=== PATIENT | female | born 1960 | race Caucasian/White ===

== ENCOUNTER 2016-11-28 07:36 | Day surgery (SDC) | payer BC ==
[~2016-11-28 07:36] MED LIST: Buffered Lidocaine 0.9% SYRIN* 5 ML/SYR SYRINGE INTRADERM ONE; Buffered Lidocaine 0.9% SYRIN* 5 ML/SYR SYRINGE ONE; Famotidine IV* 10 MG/ML 2 ML (20 mg) IV ONE; Famotidine IV* 10 MG/ML 2 ML (20 mg) ONE; Morphine INJ* 2 MG/ML 1 ML SYRINGE IV PRN; PROCHLORPERAZINE INJ 5 MG/ML 2 ML VIAL IV PRN; Scopolamine 1.5 mg* PATCH TRANSDERM PRN; ceFAZolin 2 GM PREMIX (*) 100 ML IVPB ONE; fentaNYL* 50 MCG/ML 2 ML VIAL (100 MCG VIAL) IV PRN; oxyCODONE/Acetamin 5/325 MG* TAB PO PRN
[2016-11-28] MEDS ORDERED: KETAMINE HCL* 50 MG/ML 10 ML VIAL ONE (08:13)
[2016-11-28] MEDS ORDERED: Midazolam* 1 MG/ML 5 ML VIAL (5 MG) ONE (08:13)
[2016-11-28] MEDS ORDERED: fentaNYL* 50 MCG/ML 2 ML VIAL (100 MCG VIAL) ONE (08:13)
[2016-11-28] MEDS ORDERED: Lidocaine 1% INJ* 10 MG/ML 30 ML SDV ONE (08:44)
[2016-11-28] MEDS ORDERED: Bupivacaine 0.5% W/EPI SDV* 10 ML VIAL INJ ONE (08:44)
[2016-11-28] MEDS ORDERED: Ketorolac INJ* 30 MG/ML 1 ML VIAL ONE (09:51)
[2016-11-28] MEDS ORDERED: EPHEDrine (Pressors)* 50 MG/ML VIAL ONE (09:51)
[2016-11-28] MEDS ORDERED: Propofol* 10 MG/ML 20 ML BTL IV PUSH ONE (09:51)
[2016-11-28] MEDS ORDERED: Lidocaine 2% PF * 5 ML VIAL ONE (09:51)
[2016-11-28] MEDS ORDERED: Ondansetron INJ* 2 MG/ML VIAL ONE (09:51)
[2016-11-28] MEDS ORDERED: Dexamethasone IV* 4 MG/ML 1 ML (4 MG) ONE (09:51)
[2016-11-28 11:43] VITALS: BP 124/70
--- NOTE | 2016-11-28 23:29 | OP ---
CC: Dr. De La Rosa * DATE OF OPERATION: 11/28/16 - [facility] DATE OF : 64 SURGEON: Rodney Mayo MD BLACK BELT: None. ANESTHESIOLOGIST: Dr. Finney. ANESTHESIA: LMAC anesthesia. PRE-OP DIAGNOSIS: Bloody nipple discharge of left breast. POST-OP DIAGNOSIS: Bloody nipple discharge of left breast. OPERATIVE PROCEDURE: Left terminal duct excision. DESCRIPTION OF PROCEDURE: The patient was supine on the operative table. After adequate intravenous sedation, compression stockings, Jeromy Hugger warmer, and intravenous antibiotics, left breast was prepped with antiseptic, draped in a sterile fashion. The nipple was manipulated, and bloody discharge was identified from a solitary duct at approximately the 3 o'clock position. This corresponded to the exam as seen previously. A #1 lacrimal duct probe was able to be utilized to cannulate the duct. This was then up sized to a #2 lacrimal duct probe. With the probe in place, local anesthetic was administered and a curvilinear incision was created along the edge of the areola from approximately the 2 to 4 o'clock position. Dissection was carried out under the edge of the areola until the duct was identified. This was followed back to the underside of the nipple and the duct was taken off at that level. A white suture was used to taylor the terminal duct at this location. The terminal duct was then followed down to the breast tissue and a piece of breast tissue approximately 3 x 3 x 4 cm in size was removed. It was marked using a dark suture with the usual short medium and long sutures and sent in formalin for pathologic evaluation. Hemostasis was obtained using electrocautery and closure was accomplished using 3-0 and 5-0 Polysorb followed by Steri-Strips. A gauze dressing was placed. She tolerated the procedure well and was brought to Recovery in good condition. There were no complications, no drains. Pathologic specimen is terminal duct excision. Sponge and instrument counts were correct. Estimated blood loss is less than 30 mL. [id number] #: [id number] [facility]
[2016-12-01] MEDS ORDERED: Scopolomine PATCH Remove* 1 NOTE MISC PATCH OFF ONE (05:49)
== END 2016-11-28 11:51 | disposition home or self-care (01) ==
LOC: OR 07:36
PROVIDERS: ATTEND Surgery
DX: N64.52 Nipple discharge (principal)
CPT/HCPCS: 88307; J0690; J1100; J1885; J2001; J2250; J2405; J2704; J3010

== ENCOUNTER 2017-09-13 09:11 | Emergency (ER) | payer BC ==
[2017-09-13] MEDS ORDERED: NS 0.9% 1000 ML* 1,000 ML IV ONE (09:27)
[2017-09-13 09:45] LABS: ABS Basophils 0.1 10^3/ul (0-0.2); ABS Eosinophils 0 10^3/ul (0-0.6); ABS Lymphocytes 1.1 10^3/ul (1.0-4.8); ABS Monocytes 0.1 10^3/ul (0-0.8); ABS Nucleated RBC 0 10^3/ul; Eosinophil % 0.1 % (0-6); Hematocrit 39 % (35-47); Hemoglobin 13.2 g/dl (12.0-16.0); Lymphocyte % 13.8 % (25-47); Mean Corpuscular HGB Conc 34 g/dl (31-36); Mean Corpuscular Hemoglobin 31 pg (27-31); Mean Corpuscular Volume 91 fL (80-97); Mean Platelet Volume 8.3 um3 (7.4-10.4); Nucleated Red Blood Cells % 0; Platelet Count 269 10^3/ul (150-450); Red Cell Distribution Width 13 % (10.5-15); White Blood Count 8.4 10^3/ul (3.5-10.8)
--- NOTE | 2017-09-13 10:02 | RAD ---
CLINICAL HISTORY: Right flank pain, renal colic COMPARISON: None TECHNIQUE: Multiple contiguous axial CT scans were obtained of the abdomen and pelvis, without intravenous contrast enhancement. Coronal and sagittal multiplanar reformations are submitted for review. Oral contrast was not administered. FINDINGS: The study is limited by the lack of intravenous contrast. This limits evaluation of the solid organs and vasculature. LUNG BASES: The lung bases are clear. LIVER: The liver is normal in shape, size, contour, and attenuation. BILE DUCTS: There is no intrahepatic or extrahepatic biliary dilatation. GALLBLADDER: The gallbladder is normal, without pericholecystic inflammatory change. PANCREAS: The pancreas is normal, without mass or ductal dilatation. SPLEEN: Normal in size and appearance. UPPER GI TRACT: Evaluation of the gastrointestinal tract is limited by incomplete gastric distention. The upper GI tract is unremarkable. SMALL BOWEL AND MESENTERY: The small bowel is normal in contour, course, and caliber. There is no obstruction or dilatation. COLON: The colon is normal in contour, course, caliber. There is no pericolonic inflammatory change. There is a tubular, vermiform, hollow viscus that is blind ending, and originates from the cecum, consistent with a normal appendix. There is no periappendiceal inflammatory change. This is best seen on coronal images 28 through 37. ADRENALS: Normal bilaterally. KIDNEYS: There are punctate renal calyceal stones bilaterally measuring up to 0.2 cm. There is a 0.4 cm calculus of the right mid ureter with mild hydroureter and stranding of the periureteral fat. BLADDER: The bladder is smooth in contour. PELVIC ORGANS: The uterus and adnexa are grossly normal for technique. AORTA: There is minimal calcific atherosclerotic disease of the abdominal aorta and its branches, without aneurysmal dilatation IVC: Unremarkable LYMPH NODES: There is no lymphadenopathy by size criteria. ABDOMINAL WALL: There is no evidence for abdominal wall hernia. BONES AND SOFT TISSUES: Unremarkable OTHER: None IMPRESSION: BILATERAL NEPHROLITHIASIS INCLUDING A 0.4 CM CALCULUS OF THE RIGHT MID URETER WITH MILD RIGHT HYDROURETER.
[2017-09-13 10:05] LABS: EGFR Non-African American 68.5 (>60)
[2017-09-13] MEDS ORDERED: Tamsulosin CAP* 0.4 MG PO ONE (10:05)
[2017-09-13 10:07] LABS: INR 0.98 (0.77-1.02)
[2017-09-13 10:10] LABS: Urine Appearance Cloudy; Urine Blood 2+ (Negative); Urine Color Yellow; Urine Ketones 1+ (Negative); Urine Protein 2+(100 mg/dL) (Negative); Urine Specific Gravity 1.024 (1.010-1.030); Urine Urobilinogen Negative (Negative)
[2017-09-13 11:01] VITALS: BP 140/82
--- NOTE | 2017-09-13 11:44 | ED ---
Dru Aviles Stephanie, scribed for Rickie Mantilla on 09/13/17 at 0933 . Abdominal Pain/Female - HPI Summary HPI Summary: The pt is a 57 y/o F presenting to the ED with c/o sudden-onset R sided flank pain that began at 03:00 today. Symptoms include nausea, vomiting and hematuria. The pt denies fever. Her pain is rated as a 3 in severity currently. She reports she has hx of kidney stones. - History of Current Complaint Chief Complaint: EDFlankPain Stated Complaint: RT FLANK PAIN Time Seen by Provider: 09/13/17 09:16 Hx Obtained From: Patient ?: No Onset/Duration: Sudden Onset, Lasting Hours - 6, Still Present Timing: Constant Severity Currently: Moderate Pain Intensity: 3 Pain Scale Used: 0-10 Numeric Location: Flank - R Radiates: No Aggravating Factor(s): Nothing Alleviating Factor(s): Nothing Associated Signs and Symptoms: Positive: Nausea, Vomiting, Other: - hematuria. Negative: Fever Allergies/Adverse Reactions: Allergies Allergy/AdvReac Type Severity Reaction Status Date / Time aspirin Allergy Nausea Verified 09/13/17 09:13 Home Medications: Home Medications Estradiol (NF) 0.5 mg PO DAILY 09/13/17 [History Confirmed 09/13/17] Multivitamins/Minerals TAB* [Theragran/minerals TAB*] 1 tab PO DAILY 09/13/17 [ History Confirmed 09/13/17] Progesterone CAP (NF) [Prometrium (NF)] 100 mg PO DAILY 09/13/17 [History Confirmed 09/13/17] PMH/Surg Hx/FS Hx/Imm Hx Endocrine/Hematology History: Denies: Hx Sickle Cell Disease Cardiovascular History: Denies: Other Cardiovascular Problems/Disorders Respiratory History: Denies: Other Respiratory Problems/Disorders GI History: Reports: Hx Gastroesophageal Reflux Disease Denies: Other GI Disorders History: Reports: Hx Kidney Stones - X2 LAST ONE WAS 07/2013 Musculoskeletal History: Denies: Other Musculoskeletal History Sensory History: Reports: Hx Contacts or Glasses - CONTACTS, WILL WEAR GLASSES DAY OF SURGERY Denies: Hx Hearing Aid Opthamlomology History: Reports: Hx Contacts or Glasses - CONTACTS, WILL WEAR GLASSES DAY OF SURGERY Neurological History: Denies: Other Neuro Impairments/Disorders - Cancer History Hx Chemotherapy: No Hx Radiation Therapy: No - Surgical History Surgery Procedure, Year, and Place: [place] [facility] [place] [facility] [place] Anesthesia Reactions: No Infectious Disease History: No Infectious Disease History: Denies: Traveled Outside the US in Last 30 Days - Family History Known Family History: Negative: Renal Disease - Social History Occupation: Employed Full-time Lives: With Family Alcohol Use: Weekly Alcohol Amount: 5 per week Hx Substance Use: No Substance Use Type: Reports: None Hx Tobacco Use: No Smoking Status (MU): Never Smoked Tobacco Have You Smoked in the Last Year: No Review of Systems Negative: Fever Positive: Vomiting, Nausea Positive: flank pain - R, hematuria All Other Systems Reviewed And Are Negative: Yes Physical Exam - Summary Physical Exam Summary: Appearance: Well appearing, no pain distress Skin: warm, dry, reflects adequate perfusion Head/face: normal Eyes: EOMI, CHRISTIAN ENT: normal Neck: supple, non-tender Respiratory: CTA, breath sounds present Cardiovascular: RRR, pulses symmetrical Abdomen: non-tender, soft Bowel: present Musculoskeletal: normal, strength/ROM intact Neuro: normal, sensory motor intact, A&Ox3 Triage Information Reviewed: Yes Vital Signs On Initial Exam: Initial Vitals Temp Pulse Resp BP Pulse Ox 97.8 F 68 14 127/85 98 09/13/17 09:14 09/13/17 09:14 09/13/17 09:14 09/13/17 09:14 09/13/17 09:14 Vital Signs Reviewed: Yes Diagnostics - Vital Signs Vital Signs Temp Pulse Resp BP Pulse Ox 09/13/17 09:14 97.8 F 68 14 127/85 98 - Laboratory Lab Results: Lab Results 09/13/17 09/13/17 09/13/17 Range/Units 09:31 09:31 09:31 WBC 8.4 (3.5-10.8) 10^3/ul RBC 4.30 (4.0-5.4) 10^6/ul Hgb 13.2 (12.0-16.0) g/dl Hct 39 (35-47) % MCV 91 (80-97) fL MCH 31 (27-31) pg MCHC 34 (31-36) g/dl RDW 13 (10.5-15) % Plt Count 269 (150-450) 10^3/ul MPV 8.3 (7.4-10.4) um3 Neut % (Auto) 83.7 H (38-83) % Lymph % (Auto) 13.8 L (25-47) % Crane % (Auto) 1.7 (0-7) % Eos % (Auto) 0.1 (0-6) % Baso % (Auto) 0.7 (0-2) % Absolute Neuts (auto) 7.0 (1.5-7.7) 10^3/ul Absolute Lymphs (auto) 1.1 (1.0-4.8) 10^3/ul Absolute Monos (auto) 0.1 (0-0.8) 10^3/ul Absolute Eos (auto) 0 (0-0.6) 10^3/ul Absolute Basos (auto) 0.1 (0-0.2) 10^3/ul Absolute Nucleated RBC 0 10^3/ul Nucleated RBC % 0 INR (Anticoag Therapy) (0.77-1.02) APTT (26.0-36.3) seconds Sodium 138 L (139-145) mmol/L Potassium 3.9 (3.5-5.0) mmol/L Chloride 107 (101-111) mmol/L Carbon Dioxide 25 (22-32) mmol/L Anion Gap 6 (2-11) mmol/L BUN 17 (6-24) mg/dL Creatinine 0.86 (0.51-0.95) mg/dL Est GFR ( Amer) 88.1 (>60) Est GFR (Non-Af Amer) 68.5 (>60) BUN/Creatinine Ratio 19.8 (8-20) Glucose 135 H (70-100) mg/dL Lactic Acid 0.8 (0.5-2.0) mmol/L Calcium 9.4 (8.6-10.3) mg/dL Total Bilirubin 0.70 (0.2-1.0) mg/dL AST 23 (13-39) U/L ALT 18 (7-52) U/L Alkaline Phosphatase 62 (34-104) U/L Total Protein 6.9 (6.4-8.9) g/dL Albumin 4.2 (3.2-5.2) g/dL Globulin 2.7 (2-4) g/dL Albumin/Globulin Ratio 1.6 (1-3) Lipase 20 (11.0-82.0) U/L Beta HCG, Quant 3.93 mIU/mL Urine Color Urine Appearance Urine pH (5-9) Ur Specific Glover (1.010-1.030) Urine Protein (Negative) Urine Ketones (Negative) Urine Blood (Negative) Urine Nitrate (Negative) Urine Bilirubin (Negative) Urine Urobilinogen (Negative) Ur Leukocyte Esterase (Negative) Urine WBC (Auto) (Absent) Urine RBC (Auto) (Absent) Ur Squamous Epith Cells (Absent) Urine Bacteria (Absent) Urine Glucose (Negative) 09/13/17 09/13/17 Range/Units 09:31 09:37 WBC (3.5-10.8) 10^3/ul RBC (4.0-5.4) 10^6/ul Hgb (12.0-16.0) g/dl Hct (35-47) % MCV (80-97) fL MCH (27-31) pg MCHC (31-36) g/dl RDW (10.5-15) % Plt Count (150-450) 10^3/ul MPV (7.4-10.4) um3 Neut % (Auto) (38-83) % Lymph % (Auto) (25-47) % Crane % (Auto) (0-7) % Eos % (Auto) (0-6) % Baso % (Auto) (0-2) % Absolute Neuts (auto) (1.5-7.7) 10^3/ul Absolute Lymphs (auto) (1.0-4.8) 10^3/ul Absolute Monos (auto) (0-0.8) 10^3/ul Absolute Eos (auto) (0-0.6) 10^3/ul Absolute Basos (auto) (0-0.2) 10^3/ul Absolute Nucleated RBC 10^3/ul Nucleated RBC % INR (Anticoag Therapy) 0.98 (0.77-1.02) APTT 24.1 L (26.0-36.3) seconds Sodium (139-145) mmol/L Potassium (3.5-5.0) mmol/L Chloride (101-111) mmol/L Carbon Dioxide (22-32) mmol/L Anion Gap (2-11) mmol/L BUN (6-24) mg/dL Creatinine (0.51-0.95) mg/dL Est GFR ( Amer) (>60) Est GFR (Non-Af Amer) (>60) BUN/Creatinine Ratio (8-20) Glucose (70-100) mg/dL Lactic Acid (0.5-2.0) mmol/L Calcium (8.6-10.3) mg/dL Total Bilirubin (0.2-1.0) mg/dL AST (13-39) U/L ALT (7-52) U/L Alkaline Phosphatase (34-104) U/L Total Protein (6.4-8.9) g/dL Albumin (3.2-5.2) g/dL Globulin (2-4) g/dL Albumin/Globulin Ratio (1-3) Lipase (11.0-82.0) U/L Beta HCG, Quant mIU/mL Urine Color Yellow Urine Appearance Cloudy Urine pH 9.0 (5-9) Ur Specific Glover 1.024 (1.010-1.030) Urine Protein 2+(100 mg/dl) A (Negative) Urine Ketones 1+ A (Negative) Urine Blood 2+ A (Negative) Urine Nitrate Negative (Negative) Urine Bilirubin Negative (Negative) Urine Urobilinogen Negative (Negative) Ur Leukocyte Esterase Negative (Negative) Urine WBC (Auto) 1+(6-10/hpf) A (Absent) Urine RBC (Auto) 3+(>10/hpf) A (Absent) Ur Squamous Epith Cells Present A (Absent) Urine Bacteria Absent (Absent) Urine Glucose Negative (Negative) Result Diagrams: 09/13/17 09:31 09/13/17 09:31 Lab Statement: Any lab studies that have been ordered have been reviewed, and results considered in the medical decision making process. - CT Abdomen/Pelvis CT Interpretation: Positive (See Comments) CT Interpretation Completed By: Radiologist - BILATERAL NEPHROLITHIASIS INCLUDING A 0.4 CM CALCULUS OF THE RIGHT MID URETER WITH MILD RIGHT HYDROURETER. ED physician has reviewed this report. Abdominal Pain Fem Course/Dx - Course Course Of Treatment: The pt is a 57 y/o F presenting to the ED with c/o sudden- onset R sided flank pain that began at 03:00 today. Symptoms include nausea, vomiting and hematuria. She denies fever. ED physician discussed results of CT with the pt. The pt is discharged with renal calculi. - Diagnoses Differential Diagnosis: Positive: Appendicitis, Diverticulitis, Pancreatitis, Renal Colic Provider Diagnoses: Renal calculi Discharge - Sign-Out/Discharge Documenting (check all that apply): Discharge/Admit/Transfer - discharge - Discharge Plan Condition: Stable Disposition: HOME Prescriptions: Oxycodone HCl/Acetaminophen [Percocet] 1 tab PO TID #12 tab MDD 3 Tamsulosin HCl [Flomax] 0.4 mg PO ONCE 10 Days #10 cap.er.24h Patient Education Materials: Kidney Stones (ED), Renal Colic (ED) Referrals: Logan De La Rosa MD [Primary Care Provider] - Trino Landa MD [Medical Doctor] - 3 Days Additional Instructions: Return to the ED for new or worsening symptoms. - Billing Disposition and Condition Condition: STABLE Disposition: HOME The documentation as recorded by the Dru bui Stephanie accurately reflects the service I personally performed and the decisions made by Jose Rafael wesley Emmanuel.
== END 2017-09-13 11:00 | disposition home or self-care (01) ==
LOC: ED 09:11
DX: N20.0 Calculus of kidney (principal); R11.2 Nausea with vomiting, unspecified; R10.84 Generalized abdominal pain; R31.9 Hematuria, unspecified
CPT/HCPCS: 36415; 74176; 80053; 81003; 81015; 83605; 83690; 84702; 85025; 85610; 85730; 87086; 96360; 99282

== ENCOUNTER 2017-10-06 09:20 | Emergency (ER) | payer BC ==
[2017-10-06 10:12] LABS: ABS Basophils 0 10^3/ul (0-0.2); ABS Eosinophils 0 10^3/ul (0-0.6); ABS Lymphocytes 0.7 10^3/ul (1.0-4.8); ABS Monocytes 0.3 10^3/ul (0-0.8); ABS Neutrophils 4.3 10^3/ul (1.5-7.7); ABS Nucleated RBC 0 10^3/ul; Eosinophil % 0.3 % (0-6); Hematocrit 40 % (35-47); Lymphocyte % 13.6 % (25-47); Mean Corpuscular HGB Conc 35 g/dl (31-36); Mean Corpuscular Hemoglobin 32 pg (27-31); Mean Corpuscular Volume 91 fL (80-97); Mean Platelet Volume 8.2 um3 (7.4-10.4); Nucleated Red Blood Cells % 0; Platelet Count 207 10^3/ul (150-450); Red Blood Count 4.45 10^6/ul (4.00-5.40); Red Cell Distribution Width 13 % (10.5-15); White Blood Count 5.5 10^3/ul (3.5-10.8)
[2017-10-06 10:38] LABS: EGFR Non-African American 75.6 (>60)
[2017-10-06 14:43] VITALS: BP 128/81
--- NOTE | 2017-10-06 16:02 | ED ---
Frederick Aviles Tenzin, scribed for Can Holland MD on 10/06/17 at 1132 . Complex/Multi-Sys Presentation - HPI Summary HPI Summary: Pt is a 57 years old female presenting to the ED complaining of subjective fever and TMJ pain with trouble opening her mouth since a week ago. Pt is also complaining of fatigue, chills and night sweats. She also reports neck stiffness and headache all over her head last night and noticed mild swelling on the left side of her face. Pt notes that her subjective fever throughout the day is exacerbated in the evening around 101 and 102. Pt reports that she took ibuprofen for the fever. Pt denies dysuria, abnormal bowel movements, and change in appetite and muscle pain in other parts of her body. She also reports that she has a stiff back and just from laying down from fatigue from the past three day might have contributed to it. Pt didnt note any aggravating factors or alleviating factors. She also reported that she might have gotten a tick bite several weeks ago on her right buttocks. She has seen her PCP and did blood work to test for lyme disease, currently awaiting the results. Pt was in [place] in june. - History Of Current Complaint Chief Complaint: EDFever Time Seen by Provider: 10/06/17 11:10 Hx Obtained From: Patient Onset/Duration: Lasting Days - 6 days Severity Initially: Mild Associated Signs And Symptoms: Positive: Headache, Fever, Other - POSTIVE: CHILLS, NECK STIFFNESS, TMJ PAIN ON BOTH SIDES, FATIGUE, NIGHT SWEATS. NEGATIVE : CHANGE IN APPETITE, ABNORMAL BOWEL MOVEMENTS.. Negative: Dysuria - Allergies/Home Medications Allergies/Adverse Reactions: Allergies Allergy/AdvReac Type Severity Reaction Status Date / Time aspirin Allergy Nausea Verified 09/13/17 09:13 PMH/Surg Hx/FS Hx/Imm Hx Endocrine/Hematology History: Denies: Hx Sickle Cell Disease Cardiovascular History: Denies: Other Cardiovascular Problems/Disorders Respiratory History: Denies: Other Respiratory Problems/Disorders GI History: Reports: Hx Gastroesophageal Reflux Disease Denies: Other GI Disorders History: Reports: Hx Kidney Stones - X2 LAST ONE WAS APPROX , 07/2013 Musculoskeletal History: Denies: Other Musculoskeletal History Sensory History: Reports: Hx Contacts or Glasses - CONTACTS, WILL WEAR GLASSES DAY OF SURGERY Denies: Hx Hearing Aid Opthamlomology History: Reports: Hx Contacts or Glasses - CONTACTS, WILL WEAR GLASSES DAY OF SURGERY Neurological History: Denies: Other Neuro Impairments/Disorders - Cancer History Hx Chemotherapy: No Hx Radiation Therapy: No - Surgical History Surgery Procedure, Year, and Place: [place] [facility] [place] [facility] [place] Anesthesia Reactions: No Infectious Disease History: No Infectious Disease History: Denies: Traveled Outside the US in Last 30 Days - Family History Known Family History: Negative: Renal Disease - Social History Alcohol Use: Weekly Alcohol Amount: 5 per week Hx Substance Use: No Substance Use Type: Reports: None Hx Tobacco Use: No Smoking Status (MU): Never Smoked Tobacco Have You Smoked in the Last Year: No Review of Systems Positive: Fever, Chills, Fatigue Positive: Other - TMJ PAIN, NECK STIFFNESS Negative: dysuria Positive: Edema - MILD EDEMA ON THE LEFT SIDE OF THE FACE, Other - GENERAL BACK STIFFNESS Positive: Headache All Other Systems Reviewed And Are Negative: Yes Physical Exam - Summary Physical Exam Summary: Appearance: The patient is well-nourished in no acute distress and in no acute pain. Skin: The skin is warm and dry and skin color reflects adequate perfusion. She has mild puncture on her right buttocks with mild erythema surrounding the puncture. HEENT: The head is normocephalic and atraumatic. The pupils are equal and reactive. The conjunctivae are clear and without drainage. Nares are patent and without drainage. Mouth reveals moist mucous membranes and the throat is without erythema and exudate. The external ears are intact. The ear canals are patent and without drainage. The tympanic membranes are intact. NO CORDS IN HER MOSQUE. TMJ MOVES FREELY. Neck: the neck is supple with full range of motion and non-tender. There are no carotid bruits. There is no neck vein distension. Respiratory: Chest is non-tender. Lungs are clear to auscultation and breath sounds are symmetrical and equal. Cardiovascular: Heart is regular rate and rhythm. There is no murmur or rub auscultated. There is no peripheral edema and pulses are symmetrical and equal. Abdomen: The abdomen is soft and non-tender. There are normal bowel sounds heard in all four quadrants and there is no organomegaly palpated. Musculoskeletal: There is no back tenderness noted. Extremities are non-tender with full range of motion. There is good capillary refill. There is no peripheral edema or calf tenderness elicited. Neurological: Patient is alert and oriented to person, place and time. The patient has symmetrical motor strength in all four extremities. Cranial nerves are grossly intact. Deep tendon reflexes are symmetrical and equal in all four extremities. Psychiatric: The patient has an appropriate affect and does not exhibit any anxiety or depression. Triage Information Reviewed: Yes Vital Signs On Initial Exam: Initial Vitals Temp Pulse Resp BP Pulse Ox 98.7 F 83 14 137/78 99 10/06/17 09:24 10/06/17 09:24 10/06/17 09:24 10/06/17 09:24 10/06/17 09:24 Vital Signs Reviewed: Yes Diagnostics - Vital Signs Vital Signs Temp Pulse Resp BP Pulse Ox 10/06/17 09:24 98.7 F 83 14 137/78 99 - Laboratory Lab Results: Lab Results 10/06/17 10/06/17 10/06/17 Range/Units 10:06 10:06 10:06 WBC 5.5 (3.5-10.8) 10^3/ul RBC 4.45 (4.00-5.40) 10^6/ul Hgb 14.0 (12.0-16.0) g/dl Hct 40 (35-47) % MCV 91 (80-97) fL MCH 32 H (27-31) pg MCHC 35 (31-36) g/dl RDW 13 (10.5-15) % Plt Count 207 (150-450) 10^3/ul MPV 8.2 (7.4-10.4) um3 Neut % (Auto) 79.4 (38-83) % Lymph % (Auto) 13.6 L (25-47) % Crane % (Auto) 6.0 (0-7) % Eos % (Auto) 0.3 (0-6) % Baso % (Auto) 0.7 (0-2) % Absolute Neuts (auto) 4.3 (1.5-7.7) 10^3/ul Absolute Lymphs (auto) 0.7 L (1.0-4.8) 10^3/ul Absolute Monos (auto) 0.3 (0-0.8) 10^3/ul Absolute Eos (auto) 0 (0-0.6) 10^3/ul Absolute Basos (auto) 0 (0-0.2) 10^3/ul Absolute Nucleated RBC 0 10^3/ul Nucleated RBC % 0 Sodium 139 (135-145) mmol/L Potassium 3.8 (3.5-5.0) mmol/L Chloride 104 (101-111) mmol/L Carbon Dioxide 28 (22-32) mmol/L Anion Gap 7 (2-11) mmol/L BUN 12 (6-24) mg/dL Creatinine 0.79 (0.51-0.95) mg/dL Est GFR ( Amer) 97.2 (>60) Est GFR (Non-Af Amer) 75.6 (>60) BUN/Creatinine Ratio 15.2 (8-20) Glucose 104 H (70-100) mg/dL Lactic Acid 1.3 (0.5-2.0) mmol/L Calcium 9.6 (8.6-10.3) mg/dL Total Bilirubin 0.50 (0.2-1.0) mg/dL AST 124 H (13-39) U/L ALT 130 H (7-52) U/L Alkaline Phosphatase 128 H (34-104) U/L Total Protein 7.1 (6.4-8.9) g/dL Albumin 4.0 (3.2-5.2) g/dL Globulin 3.1 (2-4) g/dL Albumin/Globulin Ratio 1.3 (1-3) Result Diagrams: 10/06/17 10:06 10/06/17 10:06 Lab Statement: Any lab studies that have been ordered have been reviewed, and results considered in the medical decision making process. Complex Multi-Symp Course/Dx Course Of Treatment: Ms. Portillo presents with a concern for intermittent fevers, left mandibular and facial pain, and a possible insect bite from a couple weeks ago. She was afebrile on presentation with normal vitals and labs were normal aside from mild liver enzyme elevations. She had absolutely no right upper quadrant tenderness and a Monospot was negative. She is convinced that this is Lyme and a Lyme test was sent by her PMD and should be back on Friday. She is fairly insistent that she be treated for Lyme at this time and it is not entirely unreasonable. - Diagnoses Provider Diagnoses: Febrile illness Discharge - Sign-Out/Discharge Documenting (check all that apply): Discharge/Admit/Transfer - Discharge - Discharge Plan Condition: Stable Disposition: HOME Prescriptions: DOXYcycline CAP(*) [DOXYcycline 100MG CAP(*)] 100 mg PO BID #28 cap Patient Education Materials: Fever in Adults (ED) Referrals: Logan De La Rosa MD [Primary Care Provider] - 3 Days Additional Instructions: Follow up with your primary care physician in three days. Return to the emergency department for any new or worsening symptoms. - Billing Disposition and Condition Condition: STABLE Disposition: Home The documentation as recorded by the Frederick bui Tenzin accurately reflects the service I personally performed and the decisions made by , Can Holland MD.
[2017-10-08 17:29] LABS: B garinii/B afzelii PCR Negative (Negative)
[2017-10-08 18:00] LABS: B. miyamotoi PCR, B Negative (Negative)
== END 2017-10-06 14:41 | disposition home or self-care (01) ==
LOC: ED 09:20
DX: R50.9 Fever, unspecified (principal); R68.84 Jaw pain; R51 Headache; M43.6 Torticollis; Z88.6 Allergy status to analgesic agent; Z87.442 Personal history of urinary calculi
CPT/HCPCS: 36415; 80053; 83605; 85025; 86140; 86308; 87476; 87798; 99282